=== PATIENT | female | born 1960 | race Hispanic/Latino ===

== ENCOUNTER 2017-11-18 15:15 | Emergency (ER) | payer MEDICARE ==
[2017-11-18 16:07] VITALS: TEMP 98.7
[2017-11-18] MEDS ORDERED: Sodium Chloride 0.9% 1,000 ML IV STA (16:23)
--- NOTE | 2017-11-18 17:14 | RAD ---
HISTORY: Cough. COMPARISON: No prior. FINDINGS: LUNGS: No active pulmonary disease. PLEURA: No significant pleural effusion identified, no pneumothorax apparent. CARDIOVASCULAR: No radiographic findings to suggest acute or significant cardiovascular disease. OSSEOUS STRUCTURES: No significant abnormalities. VISUALIZED UPPER ABDOMEN: Normal. OTHER FINDINGS: None. IMPRESSION: No active disease.
--- NOTE | 2017-11-18 17:25 | ED PDOC ---
Arrival/HPI - General Historian: Patient - History of Present Illness Time/Duration: Other (3 days) Symptom Onset: Gradual Symptom Course: Worsening - General Chief Complaint: Fever Time Seen by Provider: 11/18/17 15:18 - History of Present Illness Narrative History of Present Illness (Text): 11/18/17 18:42 This is a 57 yo F with PMH of seizures (currently off dilantin due to out of meds x 2 months), anxiety, and depression who presents with initial complaints of fevers (subjective, never measured) x3 days. Patient then reported complaint of nausea/emesis of any solid PO intake (tolerating water and soup broths) x3 days. Denies chest pain, shortness of breath, biliary or bloody emesis, syncope, near syncope, seizure activity, loss of bowel/bladder control, or tongue bitting. Reports out of seizure meds because has not maintained follow up at Clinic. Does admit to some abdominal pain with emesis, when asked to point to region, points to RUQ. When asked what foods prompted emesis, later admits to only eating fried chicken once 2 days prior, emesis then, and then not trying to eat solid food since. All other ROS in 12- system review negative. PMH: as above PSH: pt unsure, believes she hasn't had appendectomy or cholecystectomy Fam Hx: pt unsure Soc Hx: admits tobacco (reports 3-4ppd > 25 yrs), denies alcohol or illicits PMD: Previously followed at [facility], has not maintained follow- up (last visit in 2017) (Gaetano Contreras) Modifying Factors (Text): 11/18/17 19:01 emesis with PO food intake, tolerating clear liquids subjective fevers x3 days (Gaetano Contreras) Past Medical History - Provider Review Nursing Documentation Reviewed: Yes - Pulmonary Hx Emphysema: Yes - Neurological Hx Seizures: Yes - Psychiatric Hx Substance Use: No - Surgical History Hx Breast Biopsy: Yes Family/Social History - Physician Review Nursing Documentation Reviewed: Yes Family/Social History: Unknown Family HX Smoking Status: Heavy Smoker > 10 Cigarettes Daily Hx Alcohol Use: No Hx Substance Use: No Allergies/Home Meds Allergies/Adverse Reactions: Allergies No Known Allergies Allergy (Verified 11/18/17 15:55) Review of Systems - Review of Systems Constitutional: Fevers (subjective, never measured). absent: Fatigue, Weight Change Eyes: absent: Vision Changes ENT: Sore Throat (2/2 emesis). absent: Rhinorrhea, Epistaxis, Sinus Congestion Respiratory: Normal. absent: SOB Cardiovascular: absent: Chest Pain, CULELN, Syncope Gastrointestinal: Abdominal Pain, Nausea, Vomiting, Food Intolerance (is able to tolerate PO liquids). absent: Normal, Constipation, Diarrhea Genitourinary Female: Normal. absent: Dysuria, Frequency, Hematuria Musculoskeletal: Normal. absent: Back Pain, Neck Pain Skin: Normal. absent: Rash, Pruritis Neurological: Normal. absent: Headache, Dizziness, Focal Weakness, Seizure Physical Exam Vital Signs Reviewed: Yes Temperature: Afebrile Blood Pressure: Normal Pulse: Regular (tachypnic on arrival vitals, normal breathing rate (14) on exam) Respiratory Rate: Normal Appearance: Positive for: Well-Appearing, Non-Toxic, Comfortable Pain Distress: Mild Mental Status: Positive for: Alert and Oriented X 3 - Systems Exam Head: Present: Atraumatic, Normocephalic. No: Tenderness, Contusion, Swelling, Ecchymosis, Abrasion, Laceration Pupils: Present: PERRL. No: Pinpoint Extroacular Muscles: Present: EOMI Conjunctiva: Present: Normal. No: Injected, Icteric Mouth: Present: Moist Mucous Membranes, Normal Lips, Normal Tounge, Normal Teeth. No: Dry, Drooling Nose (External): Present: Atraumatic. No: Abrasion, Laceration Nose (Internal): Present: No Active Bleeding. No: Epistaxis Neck: Present: Normal Range of Motion, Trachea Midline. No: MIDLINE TENDERNESS , JVD Respiratory/Chest: Present: Clear to Auscultation, Good Air Exchange. No: Respiratory Distress, Accessory Muscle Use, Wheezes, Decreased Breath Sounds, Rales, Retracting, Rhonchi, Tachypneic Cardiovascular: Present: Regular Rate and Rhythm, Normal S1, S2, Peripheal Pulses Present (+2 radials bilaterally). No: Murmurs, Irregular Rhythm, Tachycardic, Bradycardic Abdomen: Present: Tenderness (RUQ, Maza's sign positive), Normal Bowel Sounds. No: Distention, Guarding, Mass/Organomegaly Upper Extremity: Present: Normal Inspection, Normal ROM, NORMAL PULSES. No: Cyanosis, Edema, Tenderness, Swelling, Erythema, Deformity Lower Extremity: Present: Normal Inspection, Normal ROM. No: Edema, CALF TENDERNESS, Cyanosis, Tenderness, Swelling, Erythema, Deformity Neurological: Present: GCS=15, Speech Normal, Motor Func Grossly Intact, Normal Sensory Function Skin: Present: Warm, Dry, Normal Color. No: Rashes Lymphatic: No: Cervical Adenopathy Psychiatric: Present: Alert, Oriented x 3, Normal Affect, Normal Mood. No: Normal Insight (poor insight into conditions and management) Vital Signs Temp Pulse Resp BP Pulse Ox 11/18/17 19:47 98.7 F 81 18 125/80 98 11/18/17 16:03 98.7 F 80 24 130/82 96 Medical Decision Making Reassessment Condition: Re-examined, Improved ED Course and Treatment: 11/18/17 16:10 Ddx: cholecystitis vs enteritis vs factitious CBC, CMP, Mg, Phos, Direct and Total bilirubin ordered Coags, Lipase, Rapid strep A ordered Bedside US obtained, unable to visualized GB, possible mildly dilated CBD, Abd US ordered Unable to obtain IV access, so given PO Zofran and Protonix 11/18/17 17:30 No leukocytosis on labs, Urinalysis unreliable due to 10-12 epi cells Coags wnl Lipase wnl at 46 US obtained, no gallbladder observed, no ductal dilation appreciated Symptoms improved after protonix and zofran, instructed to follow up with her PMD and attempt to advance diet as tolerated Patient seen, reviewed, and discussed with attending, Dr. Rodriguez ([facility]) 11/19/17 08:05 pt seen with resident. abd pain, sore throat, x few days. exam upper quad ttp. ? h/o of cholecystetomy. pt poor historain. labs us neg. pain resolved. urine treated. adivse outpt fu. (Manish Rodriguez) - Lab Interpretations Lab Results: 11/18/17 17:50 11/18/17 17:50 Lab Results 11/18/17 18:17: Grp A Beta Strep Ag Negative 11/18/17 17:50: Sodium 144, Potassium 4.1, Chloride 107, Carbon Dioxide 27, Anion Gap 15, BUN 13, Creatinine 0.9, Est GFR ( Amer) > 60, Est GFR (Non- Af Amer) > 60, Random Glucose 84, Calcium 9.5, Magnesium 2.3 H, Total Bilirubin 0.3, Direct Bilirubin 0.3, AST 19, ALT 15, Alkaline Phosphatase 87, Total Protein 7.7, Albumin 4.3, Globulin 3.4, Albumin/Globulin Ratio 1.3, Lipase 46 11/18/17 17:50: PT 10.8, INR 0.95, APTT 29.2 11/18/17 17:50: WBC 7.0, RBC 4.48, Hgb 14.2, Hct 42.0, MCV 93.8, MCH 31.7, MCHC 33.8, RDW 14.8 H, Plt Count 270, MPV 11.9 H, Gran % 54.7, Lymph % (Auto) 36.0 H , Mcintosh % (Auto) 7.1 H, Eos % (Auto) 1.6, Baso % (Auto) 0.6, Gran # 3.83, Lymph # (Auto) 2.5, Mcintosh # (Auto) 0.5, Eos # (Auto) 0.1, Baso # (Auto) 0.04 11/18/17 17:32: Urine Color Yellow, Urine Appearance Sl cloudy, Urine pH 6.0, Ur Specific [place] 1.025, Urine Protein Negative, Urine Glucose (UA) Negative, Urine Ketones Trace H, Urine Blood Trace-intact H, Urine Nitrate Negative, Urine Bilirubin Negative, Urine Urobilinogen 0.2, Ur Leukocyte Esterase Trace H , Urine RBC 1 - 3, Urine WBC 10 - 15, Ur Epithelial Cells 10 - 12, Urine Bacteria Mod, Urine HCG, Qual Negative - RAD Interpretation Radiology Orders: 11/18/17 16:26 CXR [CHEST PORTABLE] [RAD] Stat 11/18/17 16:29 ABDOMEN COMPLETE [US] Stat - Medication Orders Current Medication Orders: Discontinued Medications Sodium Chloride (Sodium Chloride 0.9%) 1,000 mls @ 1,000 mls/hr IV .Q1H STA Stop: 11/18/17 17:22 Last Admin: 11/18/17 17:00 Dose: 1,000 mls/hr eMAR Start Stop Document 11/18/17 17:00 LA (Rec: 11/18/17 17:00 LA [id number]) Intravenous Solution Start Date 11/18/17 Start Time 17:00 End Date 11/18/17 End time 18:00 Total Infusion Time 60 Ondansetron HCl (Zofran Inj) 4 mg IVP STAT STA Stop: 11/18/17 16:24 Last Admin: 11/18/17 16:59 Dose: 4 mg IVP Administration Document 11/18/17 16:59 LA (Rec: 11/18/17 16:59 LA [id number]) Charges for Administration # of IVP Administrations 1 Pantoprazole Sodium (Protonix Inj) 40 mg IVP STAT STA Stop: 11/18/17 16:24 Last Admin: 11/18/17 16:59 Dose: 40 mg IVP Administration Document 11/18/17 16:59 LA (Rec: 11/18/17 16:59 LA [id number]) Charges for Administration # of IVP Administrations 1 Disposition/Present on Arrival - Present on Arrival Any Indicators Present on Arrival: No History of DVT/PE: No History of Uncontrolled Diabetes: No Urinary Catheter: No History of Decub. Ulcer: No History Surgical Site Infection Following: None - Disposition Have Diagnosis and Disposition been Completed?: Yes Disposition Time: 19:23 Patient Plan: Discharge - Disposition Diagnosis: Abdominal pain, UTI (urinary tract infection), Pharyngitis Disposition: HOME/ ROUTINE Condition: GOOD Discharge Instructions (ExitCare): Sore Throat in Adults, Urinary Tract Infection, Adult (DC), Acute Abdomen (Belly Pain) Additional Instructions: please follow upw ith your doctor. return to er with worsening symptoms or concerns. Prescriptions: Cefpodoxime [Vantin] 100 mg PO BID #20 tab Referrals: Kodi Alexander MD [Primary Care Provider] - Follow up with primary Forms: [employer] ([place])
[2017-11-18 17:37] LABS: URINE BILIRUBIN NEGATIVE (NEGATIVE); URINE BLOOD TRACE-INTACT (NEGATIVE); URINE GLUCOSE (UA) NEGATIVE (NEGATIVE); URINE LEUKOCYTE ESTERASE TRACE Leu/uL (NEGATIVE); URINE PROTEIN NEGATIVE mg/dL (<30 mg/dL); URINE UROBILINOGEN 0.2 E.U./dL (<1 E.U./dL)
[2017-11-18 17:48] LABS: URINE APPEARANCE SL CLOUDY (CLEAR); URINE COLOR YELLOW (YELLOW)
[2017-11-18 17:50] LABS: URINE BACTERIA MOD (NEG)
[2017-11-18 17:57] LABS: BASO # 0.04 K/mm3 (0.0-2.0); BASO % 0.6 % (0.0-3.0); EOS # 0.1 (0.0-0.7); EOS % 1.6 % (1.5-5.0); GRAN # 3.83 (1.4-6.5); GRAN % 54.7 % (50.0-68.0); HEMOGLOBIN 14.2 g/dL (12.0-16.0); LYMPH # 2.5 (1.2-3.4); MEAN CELL VOLUME 93.8 fl (80.0-105.0); MEAN CORPUSCULAR HEMOGLOBIN 31.7 pg (25.0-35.0); MEAN CORPUSCULAR HGB CONC 33.8 g/dl (31.0-37.0); MEAN PLATELET VOLUME 11.9 fl (7.0-11.0); MONO # 0.5 (0.1-0.6); MONO % 7.1 % (1.0-6.0); RBC 4.48 10^6/uL (3.5-6.1); RED CELL DISTRIBUTION WIDTH 14.8 % (11.5-14.5)
[2017-11-18 18:03] LABS: INR 0.95 (0.93-1.08); PROTHROMBIN TIME 10.8 SECONDS (9.4-12.5)
[2017-11-18 18:04] LABS: PARTIAL THROMBOPLASTIN TIME 29.2 Seconds (25.1-36.5)
[2017-11-18 18:15] LABS: ALB/GLOB RATIO 1.3 (1.1-1.8); ALBUMIN 4.3 g/dL (3.0-4.8); ALT/SGPT 15 U/L (7-56); AST/SGOT 19 U/L (14-36); BILIRUBIN,DIRECT 0.3 mg/dL (0.0-0.4); BLOOD UREA NITROGEN 13 mg/dL (7-21); CALCIUM 9.5 mg/dL (8.4-10.5); GFR AFRICAN-AMERICAN > 60; GFR NON-AFRICAN AMERICAN > 60; LIPASE 46 U/L (23-300)
[2017-11-18 18:37] LABS: HCG,QUALITATIVE URINE NEGATIVE (NEGATIVE)
--- NOTE | 2017-11-18 18:56 | US ---
EXAM: US Abdomen Complete EXAM DATE/TIME: Exam ordered 11/18/2017 4:29 PM CLINICAL HISTORY: 57 years old, female; Pain; Abdominal pain; Generalized; Additional info: Upper abd pain TECHNIQUE: Real-time ultrasound of the abdomen (complete) with image documentation. COMPARISON: No relevant prior studies available. FINDINGS: Liver: There is minimal enlargement of the liver at 17 cm. No intrahepatic bile duct dilation. Gallbladder: The gallbladder is not identified on this study Common bile duct: No biliary dilatation is demonstrated. No stones. Pancreas: The pancreas is within normal size. Kidneys: Kidneys (rt 10.5 cm and lt 9.9 cm) are identified without hydronephrosis or mass. No stones. Spleen: The spleen is within normal size at 9.6 cm. Aorta: The aorta and the pancreas and IVC are within nomal size. No aneurysm. Inferior vena cava: See above. IMPRESSION: Minimal enlargement liver. Gallbladder not identified. The remainder of the study is unremarkable.
[2017-11-18 20:04] VITALS: BP 125/80; PULSE 81; O2SAT 98
[2017-11-19 02:30] VITALS: RESP 18
== END 2017-11-18 19:47 | disposition home or self-care (01) ==
LOC: MERGE 15:15 → ED 15:15
DX: N39.0 Urinary tract infection, site not specified (principal); J02.9 Acute pharyngitis, unspecified; R10.11 Right upper quadrant pain; F17.210 Nicotine dependence, cigarettes, uncomplicated
CPT/HCPCS: 71045; 76700; 80053; 81001; 82248; 83690; 83735; 84703; 85025; 85610; 85730; 87070; 87086; 87430; 96361; 96374; 96375; 99282; C9113; J2405; J7030

== ENCOUNTER 2017-11-27 14:12 | Emergency (ER) | payer MEDICARE ==
[2017-11-27 14:23] VITALS: RESP 18; TEMP 99.2; BMI 29.2
--- NOTE | 2017-11-27 15:30 | ED PDOC ---
Arrival/HPI - General Chief Complaint: Lower Extremity Problem/Injury Time Seen by Provider: 11/27/17 14:50 Historian: Patient - History of Present Illness Narrative History of Present Illness (Text): 11/27/17 15:26 57yo female with Past medical history of COPD, seizure, anderson's cyst of left leg who present with complaint of left leg pain. Notes pain is worse on the knee and radiates to the whole leg. Notes that pain has been ongoing for months now. She states she was diagnosed with cyst and told that she might need surgery last year but it was never done. Also notes that she was seen last month at [facility] for same leg pain and was given Percocet 10mg and muscle relaxer for the pain. States she ran out of the pain medication. she denies any new trauma, LE edema, SOB, chest pain, diaphoresis, redness, any other complaint. Past Medical History - Provider Review Nursing Documentation Reviewed: Yes - Infectious Disease Hx of Infectious Diseases: None - Cardiac Hx Cardiac Disorders: No - Pulmonary Hx Emphysema: Yes - Neurological Hx Seizures: Yes - HEENT Hx HEENT Disorder: No - Renal Hx Renal Disorder: No - Endocrine/Metabolic Hx Endocrine Disorders: No - Hematological/Oncological Hx Blood Disorders: No - Integumentary Hx Dermatological Disorder: No - Musculoskeletal/Rheumatological Hx Musculoskeletal Disorders: No - Gastrointestinal Hx Gastrointestinal Disorders: No - Genitourinary/Gynecological Hx Genitourinary Disorders: No - Psychiatric Hx Anxiety: Yes Hx Depression: Yes Hx Substance Use: No - Surgical History Hx Breast Biopsy: Yes - Anesthesia Hx Anesthesia: Yes Hx Anesthesia Reactions: No Hx Malignant Hyperthermia: No - Suicidal Assessment Feels Threatened In Home Enviroment: No Family/Social History - Physician Review Nursing Documentation Reviewed: Yes Family/Social History: Unknown Family HX Smoking Status: Unknown If Ever Smoked Hx Alcohol Use: No Hx Substance Use: No Allergies/Home Meds Allergies/Adverse Reactions: Allergies No Known Allergies Allergy (Verified 12/08/16 10:36) Review of Systems - Physician Review All systems were reviewed & negative as marked: Yes - Review of Systems Constitutional: Normal Eyes: Normal ENT: Normal Respiratory: Normal Cardiovascular: Normal Gastrointestinal: Normal Genitourinary Female: Normal Musculoskeletal: Arthralgias (LEft leg pain) Skin: Normal Neurological: Normal Endocrine: Normal Hemo/Lymphatic: Normal Psychiatric: Normal Physical Exam Vital Signs Reviewed: Yes Vital Signs Temp Pulse Resp BP Pulse Ox 11/27/17 18:16 85 18 118/74 98 11/27/17 14:20 99.2 F 94 H 18 111/75 97 Temperature: Afebrile Blood Pressure: Normal Pulse: Regular Respiratory Rate: Normal Appearance: Positive for: Well-Appearing, Non-Toxic, Comfortable Pain Distress: None Mental Status: Positive for: Alert and Oriented X 3 - Systems Exam Head: Present: Atraumatic, Normocephalic Pupils: Present: PERRL Extroacular Muscles: Present: EOMI Conjunctiva: Present: Normal Mouth: Present: Moist Mucous Membranes Neck: Present: Normal Range of Motion Respiratory/Chest: Present: Clear to Auscultation, Good Air Exchange. No: Respiratory Distress, Accessory Muscle Use Cardiovascular: Present: Regular Rate and Rhythm, Normal S1, S2. No: Murmurs Abdomen: No: Tenderness, Distention, Peritoneal Signs Back: Present: Normal Inspection Upper Extremity: Present: Normal Inspection. No: Cyanosis, Edema Lower Extremity: Present: Normal ROM (with pain on flexion of knee), Tenderness (Diffuse left leg ), Neurovascularly Intact. No: Edema, CALF TENDERNESS, Ruiz' s Sign, Swelling, Erythema, Deformity, Temperature Abnormalties Neurological: Present: GCS=15, CN II-XII Intact, Speech Normal Skin: Present: Warm, Dry, Normal Color. No: Rashes Psychiatric: Present: Alert, Oriented x 3, Normal Insight, Normal Concentration Medical Decision Making ED Course and Treatment: 11/27/17 17:45 PT in emergency department for stated history. Her pain was controlled in emergency department. She was ambulatory and neurologically intact in emergency department. Left knee xray - DJD PEr US tech - b/l popliteal cyst Result was DW the pt and she was referred to ortho. Naprosyn 500mg rx given. - RAD Interpretation Radiology Orders: 11/27/17 14:50 DUPLEX LOWER EXTRM VEIN BILAT [US] Stat 11/27/17 14:51 KNEE LEFT 2 VIEWS (AP & LAT) [RAD] Stat - Medication Orders Current Medication Orders: Discontinued Medications Ketorolac Tromethamine (Toradol) 60 mg IM STAT STA Stop: 11/27/17 14:53 Last Admin: 11/27/17 15:12 Dose: 60 mg MAR Pain Assessment Document 11/27/17 15:12 EQ (Rec: 11/27/17 15:12 EQ [id number]) Pain Reassessment Is this a pain reassessment? No Sleep Is patient sleeping during reassessment? No Presence of Pain Presence of Pain Yes IM Administration Charges Document 11/27/17 15:12 EQ (Rec: 11/27/17 15:12 EQ [id number]) Charges for Administration # of IM Administrations 1 Disposition/Present on Arrival - Present on Arrival Any Indicators Present on Arrival: No History of DVT/PE: No History of Uncontrolled Diabetes: No Urinary Catheter: No History of Decub. Ulcer: No History Surgical Site Infection Following: None - Disposition Have Diagnosis and Disposition been Completed?: Yes Diagnosis: Knee pain, left, Chronic knee pain, Popliteal cyst Disposition: HOME/ ROUTINE Disposition Time: 17:45 Patient Plan: Discharge Condition: STABLE Discharge Instructions (ExitCare): Chronic Knee Pain (DC) Additional Instructions: Follow up with your doctor/orthopedist Return to emergency department for any new or worsening symptoms Prescriptions: Naproxen [Naprosyn] 500 mg PO BID #20 tablet Referrals: Kodi Alexander MD [Primary Care Provider] - Follow up with primary Eric Rojo III, MD [Medical Doctor] - Follow up with primary Forms: [employer] ([place])
--- NOTE | 2017-11-27 17:08 | RAD ---
PROCEDURE: Left Knee Radiographs. HISTORY: Pain. COMPARISON: None. FINDINGS: BONES: No acute fracture. JOINTS: Tricompartmental narrowing with degenerative spurring. JOINT EFFUSION: None. OTHER FINDINGS: None. IMPRESSION: No demonstrated fracture or dislocation. Mild degenerative changes.
[2017-11-27 18:18] VITALS: BP 118/74; PULSE 85; O2SAT 98
--- NOTE | 2017-11-27 19:25 | US ---
HISTORY: Leg pain and swelling. Evaluate for DVT PHYSICIAN(S): Bijan Maynard MD. TECHNIQUE: Duplex sonography and color-flow Doppler with graded compression were used to evaluate the deep venous systems of both lower extremities. FINDINGS: The visualized deep venous systems of both lower extremities are sonographically normal and compressible. Normal wave forms and augmentation are seen. There is no sonographic evidence for deep venous thrombosis in the visualized segments of both lower extremities. There is a 3.6 x 6.2 cm fluid collection in the right popliteal fossa and a 3.8 x 6.4 cm fluid collection left popliteal fossa consistent with bilateral Erwin's cysts. IMPRESSION: No sonographic evidence for deep venous thrombosis in the visualized segments of both lower extremities. 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
== END 2017-11-27 18:16 | disposition home or self-care (01) ==
LOC: ED 14:12
DX: G89.29 Other chronic pain (principal); M25.562 Pain in left knee; M71.21 Synovial cyst of popliteal space [Baker], right knee; M71.22 Synovial cyst of popliteal space [Baker], left knee; J44.9 Chronic obstructive pulmonary disease, unspecified
CPT/HCPCS: 73560; 93970; 96372; 99283; J1885

== ENCOUNTER 2018-01-25 15:24 | Emergency (ER) | payer MEDICARE ==
[2018-01-25 15:46] VITALS: BMI 32.6
[2018-01-25 15:47] VITALS: RESP 18; TEMP 98.7
--- NOTE | 2018-01-25 16:49 | ED PDOC ---
Arrival/HPI - General Chief Complaint: Lower Extremity Problem/Injury Time Seen by Provider: 01/25/18 16:13 Historian: Patient - History of Present Illness Narrative History of Present Illness (Text): 01/25/18 16:53 57-year-old female with history of seizure d/o, Erwin cyst to her left knee, presents with left knee pain which caused her to fall 3 times today. Patient states that her left knee gave out on her at least 3 times a day. States that 2 years ago she saw a specialist in [place] where she used to live who advised her that she should have the cyst removed however she never went forward with the surgery. Patient states that she is highly considering having the surgery now. Otherwise reports no fever, chills, headache, dizziness, chest pain, shortness of breath, calf pain or swelling, recent travel, recent hospitalization or surgery. She denies any injuries. Patient has no additional complaints at this time. Past Medical History - Infectious Disease Hx of Infectious Diseases: None - Cardiac Hx Cardiac Disorders: No - Pulmonary Hx Respiratory Disorders: Yes Hx Emphysema: Yes - Neurological Hx Neurological Disorder: Yes Hx Seizures: Yes - HEENT Hx HEENT Disorder: No - Renal Hx Renal Disorder: No - Endocrine/Metabolic Hx Endocrine Disorders: No - Hematological/Oncological Hx Blood Disorders: No - Integumentary Hx Dermatological Disorder: No - Musculoskeletal/Rheumatological Hx Musculoskeletal Disorders: No - Gastrointestinal Hx Gastrointestinal Disorders: No - Genitourinary/Gynecological Hx Genitourinary Disorders: No - Psychiatric Hx Psychophysiologic Disorder: Yes Hx Anxiety: Yes Hx Depression: Yes Hx Substance Use: No - Surgical History Hx Breast Biopsy: Yes - Anesthesia Hx Anesthesia: Yes Hx Anesthesia Reactions: No Hx Malignant Hyperthermia: No - Suicidal Assessment Feels Threatened In Home Enviroment: No Family/Social History Family/Social History: No Known Family HX Smoking Status: Heavy Smoker > 10 Cigarettes Daily Hx Alcohol Use: No Hx Substance Use: No Allergies/Home Meds Allergies/Adverse Reactions: Allergies No Known Allergies Allergy (Verified 01/25/18 15:47) Review of Systems - Review of Systems Constitutional: absent: Fatigue, Fevers Respiratory: absent: SOB, Cough Cardiovascular: absent: Chest Pain, Palpitations Gastrointestinal: absent: Abdominal Pain, Diarrhea, Vomiting Genitourinary Female: absent: Dysuria, Frequency Musculoskeletal: Arthralgias, Joint Swelling. absent: Back Pain, Neck Pain Skin: absent: Rash Neurological: absent: Headache, Dizziness Physical Exam Vital Signs Temp Pulse Resp BP Pulse Ox 01/25/18 17:34 79 18 135/74 96 01/25/18 16:35 86 18 138/79 95 01/25/18 15:46 98.7 F 92 H 18 142/84 95 Temperature: Afebrile Blood Pressure: Normal Pulse: Regular Respiratory Rate: Normal Appearance: Positive for: Well-Appearing, Non-Toxic, Comfortable Pain Distress: None Mental Status: Positive for: Alert and Oriented X 3 - Systems Exam Head: Present: Atraumatic, Normocephalic Mouth: Present: Moist Mucous Membranes Neck: Present: Normal Range of Motion Respiratory/Chest: Present: Clear to Auscultation, Good Air Exchange. No: Respiratory Distress, Accessory Muscle Use Cardiovascular: Present: Regular Rate and Rhythm, Normal S1, S2. No: Murmurs Abdomen: No: Tenderness, Distention, Peritoneal Signs Back: Present: Normal Inspection Upper Extremity: Present: Normal Inspection, Normal ROM, NORMAL PULSES, Capillary Refill < 2s, Norm 2-Pt Discrimination. No: Cyanosis, Edema, Swelling , Erythema, Temperature Abnormalties, Deformity Lower Extremity: Present: Normal Inspection, NORMAL PULSES, Normal ROM, Tenderness (to the posterior L knee ), Neurovascularly Intact, Capillary Refill < 2 s. No: Edema, CALF TENDERNESS, Swelling, Erythema, Deformity, Temperature Abnormalties Neurological: Present: GCS=15, CN II-XII Intact, Speech Normal, Motor Func Grossly Intact, Normal Sensory Function Skin: Present: Warm, Dry, Normal Color. No: Rashes Psychiatric: Present: Alert, Oriented x 3, Normal Insight, Normal Concentration Medical Decision Making ED Course and Treatment: 01/25/18 16:44 Plan : - XR L knee - US duplex b/l LE - toradol IM 01/25/18 18:38 XR L knee : FINDINGS: BONES: Bone alignment is normal. There is no acute displaced fracture or bone destruction.There is diffuse bone demineralization. JOINTS: There is mild tricompartmental degenerative osteoarthrosis with reduced joint spaces, marginal osteophytes and tibial spiking, worse in the media compartment. JOINT EFFUSION: There is a small suprapatellar joint effusion. OTHER FINDINGS: None. IMPRESSION: Mild tricompartmental degenerative osteoarthrosis, worse in the medial compartment. Small suprapatellar joint effusion. US doppler b/l LE : no DVT, +erwin's cyst to b/l knees measuring each ~ 6 cm On reevaluation, patient is laying in bed comfortably in no acute distress. XR and US results d/w the patient in great detail. Jamaal wrap and knee immobilizer applied. Of note, patient is asking for a Rx refill of her anti-seizure medication, dilantin 100 mg bid, which she has not taken over the past 2 years, due to insurance issues and inability to f/u. States that she has been able to "control " her seizures. Advised to follow up with ortho and referral pmd in 1-2 days without fail. Advised to continue taking naprosyn. Return to the emergency room at any time for any new or worsening symptoms. Patient states she fully agrees with and understands discharge instructions. States that she agrees with the plan and disposition. Verbalized and repeated discharge instructions and plan. I have given the patient opportunity to ask any additional questions. - RAD Interpretation Radiology Orders: 01/25/18 16:37 KNEE LEFT 2 VIEWS (AP & LAT) [RAD] Stat DUPLEX LOWER EXTRM VEIN BILAT [US] Stat - Medication Orders Current Medication Orders: Discontinued Medications Ketorolac Tromethamine (Toradol) 60 mg IM STAT STA Stop: 01/25/18 16:44 Last Admin: 01/25/18 17:41 Dose: 60 mg MAR Pain Assessment Document 01/25/18 17:41 SF (Rec: 01/25/18 17:41 SF [id number]) Pain Reassessment Is this a pain reassessment? Yes Sleep Is patient sleeping during reassessment? No Presence of Pain Presence of Pain Yes IM Administration Charges Document 01/25/18 17:41 SF (Rec: 01/25/18 17:41 SF [id number]) Injection Site MAR Injection Site Left Deltoid Charges for Administration # of IM Administrations 1 - PA / LOCKS INSPECTOR / Resident Statement MD/DO has reviewed & agrees with the documentation as recorded. Disposition/Present on Arrival - Present on Arrival Any Indicators Present on Arrival: No History of DVT/PE: No History of Uncontrolled Diabetes: No Urinary Catheter: No History of Decub. Ulcer: No History Surgical Site Infection Following: None - Disposition Have Diagnosis and Disposition been Completed?: No Diagnosis: Left knee pain, Erwin's cyst Disposition: HOME/ ROUTINE Disposition Time: 18:45 Patient Plan: Discharge Patient Problems: Current Active Problems Problem Status Onset Left knee pain Acute Erwin's cyst Acute Condition: STABLE Discharge Instructions (ExitCare): Chronic Knee Pain, Erwin's Cyst (DC) Additional Instructions: Thank you for letting us take care of you today. You were treated for chronic L knee pain, h/o erwin's cyst. The emergency medical care you received today was directed at your acute symptoms. Return to the Emergency Department if your symptoms worsen, do not improve, or if you have any other problems. Please call one of the physicians/clinics you have been referred to that are listed on the Patient Visit Information form that is included in your discharge packet. Bring any paperwork you were given at discharge with you along with any medications you are taking to your follow up visit. Our treatment cannot replace ongoing medical care by a primary care provider (PCP) outside of the emergency department. Thank you for allowing the [facility] team to be part of your care today. If you had an X-Ray : A Radiologist will review the ED reading if any change in treatment is needed we will contact you. Prescriptions: Phenytoin, Extended [Dilantin Kapseals] 100 mg PO BID #[id number] Referrals: Vincent Loera MD [Staff Provider] - Follow up with primary FAMILY PROVIDER,NO [Primary Care Provider] - Follow up with primary Celia Shah MD [Staff Provider] - Follow up with primary Forms: [employer] (Setswana)
--- NOTE | 2018-01-25 17:12 | RAD ---
Date of service: 01/25/2018 PROCEDURE: Left Knee Radiographs. HISTORY: Pain. COMPARISON: None. FINDINGS: BONES: Bone alignment is normal. There is no acute displaced fracture or bone destruction.There is diffuse bone demineralization. JOINTS: There is mild tricompartmental degenerative osteoarthrosis with reduced joint spaces, marginal osteophytes and tibial spiking, worse in the media compartment. JOINT EFFUSION: There is a small suprapatellar joint effusion. OTHER FINDINGS: None. IMPRESSION: Mild tricompartmental degenerative osteoarthrosis, worse in the medial compartment. Small suprapatellar joint effusion.
--- NOTE | 2018-01-25 18:38 | US ---
HISTORY: Leg pain and swelling. Evaluate for DVT PHYSICIAN(S): Bijan Maynard MD. TECHNIQUE: Duplex sonography and color-flow Doppler with graded compression were used to evaluate the deep venous systems of both lower extremities. FINDINGS: The visualized deep venous systems of both lower extremities are sonographically normal and compressible. Normal wave forms and augmentation are seen. There is no sonographic evidence for deep venous thrombosis in the visualized segments of both lower extremities. There is a 1.2 x 6.1 cm fluid collection in the right popliteal fossa and a larger 2.9 x 6.8 cm fluid collection left popliteal fossa consistent with bilateral Erwin's cysts IMPRESSION: No sonographic evidence for deep venous thrombosis in the visualized segments of both lower extremities.
[2018-01-25 19:01] VITALS: BP 132/75; PULSE 72; O2SAT 98
== END 2018-01-25 19:01 | disposition home or self-care (01) ==
LOC: ED 15:24
DX: M25.562 Pain in left knee (principal); M71.22 Synovial cyst of popliteal space [Baker], left knee; F17.210 Nicotine dependence, cigarettes, uncomplicated
CPT/HCPCS: 29530; 73560; 93970; 96372; 99285; J1885